=== PATIENT | female | born 1940 | race African-American/Black ===

== ENCOUNTER 2017-04-04 00:10 | Emergency (ER) | payer MEDICARE, MEDICAID ==
--- NOTE | 2017-04-04 01:42 | ER Document Report ---
ED Cardiac - General Chief Complaint: Palpitations Stated Complaint: RAPID HEART RATE Time Seen by Provider: 04/04/17 01:30 Notes: Patient is a 76-year-old female that comes emergency department with chief complaint of an episode prior to arrival where she felt a "flip-flop" in her chest, she felt like her heart was racing, she felt flushed and a little bit short of breath. She states this has happened several times over the past few days. She actually was admitted for observation for palpitations at [facility] in [place] from March 30 - March 31, had a stress test that she was told was "low risk" was placed on atorvastatin and given nitroglycerin and instructed to follow-up with cardiology in [place]. Patient denies ever having heart attack, past medical history of hypertension, PE (on Xarelto). She denies any current symptoms. She states she drinks coffee heavily until today when she quit because she was worried it was giving her palpitations. TRAVEL OUTSIDE OF THE [place] IN LAST 30 DAYS: No Past Medical History - General Information source: Patient - Social History Smoking Status: Never Smoker Frequency of alcohol use: None Drug Abuse: None Lives with: Family Family History: Reviewed & Not Pertinent - Past Medical History Cardiac Medical History: Reports: Hx Coronary Artery Disease, Hx DVT, Hx Hypercholesterolemia, Hx Hypertension Neurological Medical History: Reports: None Endocrine Medical History: Reports: None Renal/ Medical History: Reports: None Malignancy Medical History: Reports: None GI Medical History: Reports: None Musculoskeltal Medical History: Reports None Skin Medical History: Reports None Psychiatric Medical History: Reports: Hx Depression - Immunizations Immunizations up to date: Yes Hx Diphtheria, Pertussis, Tetanus Vaccination: Yes Review of Systems - Review of Systems Constitutional: No symptoms reported EENT: No symptoms reported Cardiovascular: See HPI Respiratory: See HPI Gastrointestinal: No symptoms reported Genitourinary: No symptoms reported Female Genitourinary: No symptoms reported Musculoskeletal: No symptoms reported Skin: No symptoms reported Hematologic/Lymphatic: No symptoms reported Neurological/Psychological: No symptoms reported Physical Exam - Vital signs Vitals: Temp Pulse Resp BP Pulse Ox 98.3 F 83 14 105/70 99 04/04/17 00:43 04/04/17 00:43 04/04/17 00:43 04/04/17 00:43 04/04/17 00:43 Interpretation: Normal - General General appearance: Appears well, Alert In distress: None - HEENT Head: Normocephalic, Atraumatic Eyes: Normal Pupils: PERRL - Respiratory Respiratory status: No respiratory distress Chest status: Nontender Breath sounds: Normal Chest palpation: Normal - Cardiovascular Rhythm: Regular. No: Tachycardia Heart sounds: Normal auscultation, S1 appreciated, S2 appreciated Murmur: No Normal capillary refill: Yes - Abdominal Inspection: Normal Distension: No distension Bowel sounds: Normal Tenderness: Nontender. No: Tender, Guarding - Back Back: Normal, Nontender. No: Tender - Extremities General upper extremity: Normal inspection, Nontender, Normal ROM, Normal strength General lower extremity: Normal inspection, Nontender, Normal ROM, Normal strength - Neurological Neuro grossly intact: Yes Cognition: Normal Orientation: AAOx4 Jahaira Coma Scale Eye Opening: Spontaneous Jahaira Coma Scale Verbal: Oriented [place] Coma Scale Motor: Obeys Commands Jahaira Coma Scale Total: 15 Speech: Normal Cranial nerves: Normal Cerebellar coordination: Normal Motor strength normal: LUE, RUE, LLE, RLE Additional motor exam normals: Equal acquisition consultant Sensory: Normal - Psychological Associated symptoms: Normal affect, Normal mood - Skin Skin Temperature: Warm Skin Moisture: Dry Skin Color: Normal Course - Re-evaluation Re-evalutation: EKG shows sinus rhythm at a rate of 84, T-wave inversions in V4 through V6 and in leads I and aVL. Left axis deviation. Borderline QT interval with QTC of 497. No comparison EKG. CBC generally unremarkable. Chemistry unremarkable. Troponin negative. Magnesium normal. Patient denying current symptoms. Chest x-ray showing questionable 4 cm area in the right perihilar region. Patient with no current symptoms, I do not suspect aortic dissection, pneumonia , vascular congestion. Discussed with Dr. Proctor. He recommends patient simply have a follow-up x-ray performed on this, I did discuss this with patient specifically. Discussed this with family as well. Dr. Proctor December recommends contacting [facility] and obtaining an EKG for comparison. Instead of an EKG [facility] faxed us stress test results with no EKG report to compare to. Called transfer center at [facility], spoke with transfer center personnel, they recommend I speak to [facility] personnel bonderizer operator. She states patient was supposed to follow-up with them although she has not yet. Spoke with Skyler Chaidez PA-C on-call for cardiology, reports that patient had inverted T waves laterally on the previous EKG. Recommendation at this time based on her presentation and complaints is for patient to be seen today in the office. I discussed this with patient and family, they state that they will call and go today to the office for additional management. Patient will return if she develops chest pain, difficulty breathing, passing out, or any other concerning symptoms. - Vital Signs Vital signs: Temp Pulse Resp BP Pulse Ox 98.3 F 83 21 H 98/70 L 97 04/04/17 00:43 04/04/17 00:43 04/04/17 06:00 04/04/17 06:00 04/04/17 06:00 - Laboratory Result Diagrams: 04/04/17 01:50 04/04/17 01:50 Laboratory results interpreted by me: 04/04/17 04/04/17 01:50 01:50 RBC 5.49 H MCV 73 L MCH 23.3 L MCHC 31.8 L RDW 15.7 H Glucose 122 H Discharge - Discharge Clinical Impression: Palpitations Condition: Stable Disposition: HOME, SELF-CARE Additional Instructions: Your workup today does not indicate any new concerning abnormalities. I spoke with Skyler Chaidez on the phone tonight, they are requesting that you go to the [facility] (wildlife removal specialist) office today. It should open today at 8 AM. Please call and set this up to go in. Return the emergency department for any concerning symptoms.
[2017-04-04 02:06] LABS: ABSOLUTE BASOPHILS # (AUTO) 0.1 10^3/uL (0.0-0.2); ABSOLUTE EOSINOPHILS # (AUTO) 0.1 10^3/uL (0.0-0.6); ABSOLUTE LYMPHOCYTES (AUTO) 1.4 10^3/uL (0.5-4.7); ABSOLUTE MONOCYTES (AUTO) 0.6 10^3/uL (0.1-1.4); ABSOLUTE NEUT (AUTO) 3.2 10^3/uL (1.7-8.2); BASOPHILS % (AUTO) 1.5 % (0-2); EOSINOPHILS % (AUTO) 1.8 % (0-6); HEMATOCRIT 40.3 % (36.0-47.0); HEMOGLOBIN 12.8 g/dL (12.0-15.5); LYMPHOCYTES % (AUTO) 26.3 % (13-45); MEAN CORPUSCULAR HEMOGLOBIN 23.3 pg (27.0-33.4); MEAN CORPUSCULAR HGB CONC 31.8 g/dL (32.0-36.0); MEAN CORPUSCULAR VOLUME 73 fl (80-97); PLATELET COUNT 233 10^3/uL (150-450); RED BLOOD COUNT 5.49 10^6/uL (3.72-5.28); RED CELL DISTRIBUTION WIDTH 15.7 % (11.5-14.0); SEGMENTED NEUTROPHILS % (AUTO) 59.4 % (42-78); TOTAL CELLS COUNTED % (AUTO) 100 %; WHITE BLOOD COUNT 5.3 10^3/uL (4.0-10.5)
[2017-04-04 02:20] LABS: ALANINE AMINOTRANSFERASE 22 U/L (9-52); ALBUMIN 4.3 g/dL (3.5-5.0); ALKALINE PHOSPHATASE 96 U/L (38-126); ANION GAP 11 (5-19); ASPARTATE AMINO TRANSFERASE 23 U/L (14-36); BILIRUBIN,DIRECT 0.2 mg/dL (0.0-0.4); BILIRUBIN,TOTAL 0.8 mg/dL (0.2-1.3); BLOOD UREA NITROGEN 14 mg/dL (7-20); CALCIUM 9.4 mg/dL (8.4-10.2); CARBON DIOXIDE 27 mmol/L (22-30); CHLORIDE 105 mmol/L (98-107); CREATINE KINASE 88 U/L (30-135); GLUCOSE 122 mg/dL (75-110); MAGNESIUM 2.2 mg/dL (1.6-2.3); POTASSIUM 3.9 mmol/L (3.6-5.0); SODIUM 143.2 mmol/L (137-145); TOTAL PROTEIN 7.5 g/dL (6.3-8.2)
[2017-04-04 02:32] LABS: CREATINE KINASE MB 1.33 ng/mL (<4.55)
[2017-04-04 02:42] LABS: TROPONIN I < 0.012 ng/mL
--- NOTE | 2017-04-04 02:52 | RADIOLOGY REPORT (SQ) ---
EXAM DESCRIPTION: CHEST SINGLE VIEW CLINICAL HISTORY: 76 years, Female, shortness of breath COMPARISON: None. FINDINGS: Normal lung volume, 4 cm right hilar fullness, mild cardiac enlargement, and mild osteoarthritis/disc desiccation. IMPRESSION: Indeterminate 4 cm right hilar fullness; further evaluation with contrast CT of the chest recommended. 2011 [employer]- All Rights Reserved
[2017-04-04 06:11] VITALS: BP 98/70
--- NOTE | 2017-04-04 23:14 | EKG REPORT ---
SEVERITY:- ABNORMAL ECG - SINUS RHYTHM LEFT AXIS DEVIATION LVH WITH REPOLARIZATION ABNORMALITY VS ISCHEMIA CONSIDER ANTERIOR INFARCT BORDERLINE PROLONGED QT INTERVAL : Confirmed by: Jack Barrera 04-Apr-2017 23:14:14
== END 2017-04-04 06:11 | disposition home or self-care (01) ==
LOC: ER 00:10
DX: R00.2 Palpitations (principal); I10 Essential (primary) hypertension; I25.10 Atherosclerotic heart disease of native coronary artery without angina pectoris; Z86.711 Personal history of pulmonary embolism; Z79.01 Long term (current) use of anticoagulants; Z86.718 Personal history of other venous thrombosis and embolism
CPT/HCPCS: 36415; 71045; 80053; 82550; 82553; 83735; 84484; 85025; 93005; 93010; 99285